=== PATIENT | male | born 1945 | race Caucasian/White ===

== ENCOUNTER 2025-01-27 12:03 | Emergency (ER) | payer OTHER, MEDICARE ==
[~2025-01-27] VITALS: Ht 185.4 cm; Wt 60.5 kg
[2025-01-27 12:25] LABS: BASOPHILS 0.7 % (0.2-1.2); EOSINOPHILS 1.8 % (0.8-7.0); LYMPHOCYTES 26.4 % (21.8-53.1); MCH 28.3 PG (25.7-32.2); MCHC 30.7 g/dL (32.3-36.5); MCV 92.4 fL (79.0-92.2); MONOCYTES 8.3 % (5.3-12.2); NEUTROPHILS 62.4 % (34.0-67.9); RBC 4.34 M/uL (4.63-6.08)
[2025-01-27] MEDS ORDERED: METFORMIN HCL500 MG PO (12:26)
[2025-01-27] MEDS ORDERED: LIPITOR40 MG PO (12:27)
[2025-01-27 12:34] LABS: ALT (SGPT) 25.0 U/L (14-59); AST (SGOT) 14.0 U/L (15-37); GLOMERULAR FILTRATION RATE,EST 98.0 mL/min (>60); PROTEIN, TOTAL 6.9 g/dL (6.4-8.2); UREA NITROGEN 43.0 mg/dL (7-18)
[2025-01-27 15:03] VITALS: BP 138/82
--- NOTE | 2025-01-27 23:33 | EKG ---
[facility] [address] [place] [address] Signed Normal sinus rhythm Right atrial enlargement Right axis deviation Right ventricular hypertrophy Inferior infarct , age undetermined Abnormal ECG No previous ECGs available Confirmed by Emeli Horn MD () on 01/27/2025 11:32:56 PM Electronically Signed By: EMELI HORN MD 01/27/25 2333 PATIENT NAME: GRIFFIN OLIVERA Electrocardiogram DATE OF : 47 PHYSICIAN: EMELI HORN MD REPORT #: [id number] REPORT IS CONFIDENTIAL AND NOT TO BE RELEASED WITHOUT AUTHORIZATION
== END 2025-01-27 15:03 | disposition home or self-care (01) ==
LOC: ED 12:03
PROVIDERS: Emergency Medicine
DX: R55 Syncope and collapse (principal); J44.9 Chronic obstructive pulmonary disease, unspecified; Z79.84 Long term (current) use of oral hypoglycemic drugs; Z79.899 Other long term (current) drug therapy
CPT/HCPCS: 36415; 70450; 71045; 72125; 80053; 85025; 93005; 93010; 99285-25; G0480